=== PATIENT | male | born 1955 | race Caucasian/White ===

== ENCOUNTER 2020-09-21 04:08 | Emergency (ER) | payer OTHER ==
[2020-09-21 05:33] LABS: BASOPHIL 0.5 % (0-2); EOSINOPHIL 3.2 % (0-7); HCT 44.4 % (42.0-52.0); HGB 15.4 g/dl (13.2-18.0); LYMPHOCYTE 22.5 % (15-48); MCHC 34.7 g/dL (32.0-36.0); MCV 89.5 fL (78.0-100.0); MONOCYTE 9.6 % (0-12); MPV 10.3 fL (6.0-9.5); NEUTROPHIL 63.9 % (41-80); NRBC 0; PLT 223 K/uL (150-400); RBC 4.96 M/uL (4.70-6.00); RDW 12.3 % (11.5-14.0)
[2020-09-21 05:44] LABS: ALBUMIN 3.9 g/dL (3.4-5.0); BILIRUBIN - TOTAL 0.7 mg/dL (0.2-1.0); BUN/CREAT RATIO (CALC) 28.3 RATIO; CREATININE 0.6 mg/dL (0.67-1.17); GLOBULIN (CALCULATION) 3.1 g/dL; POTASSIUM 4.2 mmol/L (3.5-5.1)
[2020-09-21 06:02] LABS: INR 1.06 (0.9-1.2); PROTHROMBIN TIME 13.1 SECONDS (11.4-13.6); PTT 29.7 SECONDS (22.2-34.7)
[2020-09-21] MEDS ORDERED: MEDROL 4MG DOSEP4 MG PO (06:07)
[2020-09-21] MEDS ORDERED: NORCO 5-325 TA1 EACH PO (06:07)
== END 2020-09-21 06:45 | disposition home or self-care (01) ==
LOC: FER 04:08
PROVIDERS: Emergency Medicine Emergency Medical Services
DX: S22.31XA Fracture of one rib, right side, initial encounter for closed fracture (principal); Z87.442 Personal history of urinary calculi; W17.89XA Other fall from one level to another, initial encounter
CPT/HCPCS: 36415; 71101; 80053; 85025; 85610; 85730; 94010; J1100; J1170; J1885; J2405